=== PATIENT | male | born 1990 | race Caucasian/White ===

== ENCOUNTER 2017-09-30 11:30 | Emergency (ER) | payer SELFPAY, BC, MEDICAID, OTHER ==
[2017-09-30] MEDS: ADACEL/BOOSTRIX VACCINE (DIPHTH/PERTUSS/ACELL/TETANUS)0.5ML SYR (90715) IM (13:15)
[2017-09-30] MEDS: ERYTHROMYCIN OPHTH OINT OS (13:22)
== END 2017-09-30 13:59 | disposition home or self-care (01) ==
LOC: M ED 11:30
DX: T15.02XA Foreign body in cornea, left eye, initial encounter (principal); X58.XXXA Exposure to other specified factors, initial encounter; Y92.89 Other specified places as the place of occurrence of the external cause; F17.210 Nicotine dependence, cigarettes, uncomplicated
CPT/HCPCS: 90715

== ENCOUNTER → 2018-04-12 | Outpatient (REF) | payer OTHER ==
[~2018-04-12] MED LIST: ERYTOIN8 OS
== END ==
LOC: M SFHCLERA 14:27
PROVIDERS: ATTEND Nurse Practitioner Family
DX: J02.9 Acute pharyngitis, unspecified (principal)

== ENCOUNTER → 2018-12-22 | Outpatient (CLI) | payer MEDICAID | LOC: M OUTALCOH 09:42 | PROVIDERS: ATTEND Psychiatry & Neurology Psychiatry | DX: Z03.89 Encounter for observation for other suspected diseases and conditions ruled out (principal) ==

== ENCOUNTER 2018-12-29 11:05 | Outpatient (RCR) | payer MEDICAID | END 2019-01-25 | LOC: M OUTALCOH 11:05 | PROVIDERS: ATTEND Psychiatry & Neurology Psychiatry | DX: Z03.89 Encounter for observation for other suspected diseases and conditions ruled out (principal) ==

== ENCOUNTER → 2020-05-05 | Outpatient (CLI) | payer MEDICAID ==
[2020-05-05 12:30] LABS: BASO % 0.2 % (0.0-1.0); EOS % 0.3 % (0.0-3.0); HEMATOCRIT 48.2 % (42.0-52.0); HEMOGLOBIN 16.4 g/dl (13.5-17.5); LYMPH # 2.5 10^3/uL (1.5-5.0); MEAN CORPUSCULAR HEMOGLOBIN 31.5 pg (27.0-33.0); MEAN CORPUSCULAR VOLUME 92.7 fl (80.0-96.0); MONO # 1.3 10^3/uL (0.0-0.8); MONO % 13.7 % (0.0-5.0); NEUTROPHILS # 5.8 10^3/uL (1.5-8.5); NEUTROPHILS % 59.5 % (36.0-66.0); PLATELET COUNT, AUTOMATED 260 10^3/uL (150-450); WHITE BLOOD COUNT 9.7 10^3/uL (4.0-10.0)
[2020-05-05 14:07] LABS: ALBUMIN 4.2 GM/DL (3.2-5.2); ALT/SGPT 25 U/L (12-78); BILIRUBIN,TOTAL 2.7 MG/DL (0.2-1.0); BLOOD UREA NITROGEN 11 MG/DL (7-18); CALCIUM LEVEL 9.3 MG/DL (8.5-10.1); CARBON DIOXIDE LEVEL 30 MEQ/L (21-32); CHLORIDE LEVEL 101 MEQ/L (98-107); CREATININE FOR GFR 1.16 MG/DL (0.70-1.30); GLOMERULAR FILTRATION RATE > 60.0 (>60); GLUCOSE, FASTING 109 MG/DL (70-100); POTASSIUM SERUM 4.1 MEQ/L (3.5-5.1); SODIUM LEVEL 138 MEQ/L (136-145); TOTAL PROTEIN 7.5 GM/DL (6.4-8.2)
== END ==
LOC: M WUC 10:07
PROVIDERS: ATTEND Physician Assistant
DX: K29.20 Alcoholic gastritis without bleeding (principal)

== ENCOUNTER 2020-06-24 08:43 | Emergency (ER) | payer MEDICAID, OTHER ==
[~2020-06-24] VITALS: Ht 177.8 cm; Wt 74.6 kg
--- NOTE | 2020-06-24 09:14 | REP ---
INDICATION: HEAD TRAUMA. COMPARISON: Comparison CT study September 03, 2011.. TECHNIQUE: Helical scanning is acquired. 5 mm axial images were reformatted. Coronal MPR images were generated. FINDINGS: Bone window settings demonstrate an intact bony calvarium. There is no evidence of skull fracture or incidental bony calvarial lesion. The visualized paranasal sinuses appear clear. No intraorbital abnormality is seen. On soft tissue window setting images; the lateral, third, and fourth ventricles are normal in size and position. Hannon-white differentiation pattern is normal above and below the tentorium. There are is no evidence of intracranial hemorrhage. No mass, edema, infarction, or midline shift is seen. No extra-axial fluid collection is appreciated. IMPRESSION: Negative noncontrast head CT. <Electronically signed by Junito Fong > 06/24/20 [id number]
--- NOTE | 2020-06-24 09:16 | REP ---
INDICATION: HEAD TRAUMA. COMPARISON: None. TECHNIQUE: Helical scanning is acquired and overlapping 2 mm high resolution axial images were generated and reviewed at bone and soft tissue window settings. Coronal and sagittal multiplanar re-formations images are generated. FINDINGS: There is no evidence of cervical spine element fracture. No skull base fracture is seen. Cervical vertebral body heights are preserved. Alignment is normal. Facet joints are normally aligned bilaterally at each cervical level on multiplanar re-formations images. There is no evidence of intraspinal or paraspinal hematoma. No extra vertebral abnormality is seen. IMPRESSION: Negative CT study of the cervical spine without contrast. No fracture seen. <Electronically signed by Junito Fong > 06/24/20 0610
[2020-06-24] MEDS ORDERED: METOCLOPRAMIDE INJ 10MG/2ML VIAL (J2765 PER 1) IV ONE (09:20)
[2020-06-24] MEDS ORDERED: NS 1,000 ML IV SCH (09:20)
[2020-06-24 09:36] LABS: BASO % 0.2 % (0.0-1.0); HEMATOCRIT 47.1 % (42.0-52.0); HEMOGLOBIN 16.1 g/dl (13.5-17.5); LYMPH # 1.2 10^3/uL (1.5-5.0); MEAN CORPUSCULAR HEMOGLOBIN 31.9 pg (27.0-33.0); MEAN CORPUSCULAR HGB CONC 34.2 g/dl (32.0-36.5); MEAN CORPUSCULAR VOLUME 93.3 fl (80.0-96.0); MONO # 0.7 10^3/uL (0.0-0.8); MONO % 6.3 % (2.0-8.0); NEUTROPHILS # 8.7 10^3/uL (1.5-8.5); PLATELET COUNT, AUTOMATED 277 10^3/uL (150-450); RED BLOOD COUNT 5.05 10^6/uL (4.30-6.10); WHITE BLOOD COUNT 10.6 10^3/uL (4.0-10.0)
[2020-06-24 10:07] LABS: ALBUMIN 4.7 GM/DL (3.2-5.2); ALT/SGPT 52 U/L (12-78); BILIRUBIN,DIRECT 0.3 MG/DL (0.0-0.2); BILIRUBIN,TOTAL 1.1 MG/DL (0.2-1.0); BLOOD UREA NITROGEN 11 MG/DL (7-18); CALCIUM LEVEL 9.4 MG/DL (8.5-10.1); CARBON DIOXIDE LEVEL 27 MEQ/L (21-32); CHLORIDE LEVEL 101 MEQ/L (98-107); CREATININE FOR GFR 0.82 MG/DL (0.70-1.30); GLOMERULAR FILTRATION RATE > 60.0 (>60); GLUCOSE, FASTING 114 MG/DL (70-100); LIPASE 70 U/L (73-393); POTASSIUM SERUM 4.6 MEQ/L (3.5-5.1); SODIUM LEVEL 136 MEQ/L (136-145); TOTAL PROTEIN 8.3 GM/DL (6.4-8.2)
[2020-06-24] MEDS ORDERED: PANTOPRAZOLE 40MG TAB (PROTONIX) PO ONE (10:35)
[2020-06-24] MEDS ORDERED: GI COCKTAIL 50ML BTL(HYOSCYAMINE/MAALOX/LIDOCAINE VISCOUS)(1:3:1) PO ONE (10:35)
[2020-06-24] MEDS ORDERED: PROT1TAB2 PO (11:52)
[2020-06-24] MEDS ORDERED: CARA1TAB6 PO (11:53)
[2020-06-24 12:11] VITALS: BP 152/79
== END 2020-06-24 12:14 | disposition home or self-care (01) ==
LOC: M ED 08:43
DX: R10.13 Epigastric pain (principal); F17.200 Nicotine dependence, unspecified, uncomplicated; Z79.899 Other long term (current) drug therapy
CPT/HCPCS: 70450; 72125; 80048; 80076; 83690; 85025; 96361; 96374; 99284; J2765

== ENCOUNTER → 2021-03-25 | Outpatient (CLI) | payer MEDICAID ==
[~2021-03-25] MED LIST changes: +CARA1TAB6 PO; +PROT1TAB2 PO
== END ==
LOC: M OUTALCOH 09:02
PROVIDERS: ATTEND Psychiatry & Neurology Psychiatry
DX: Z13.9 Encounter for screening, unspecified (principal)

== ENCOUNTER 2021-04-21 15:55 | Outpatient (RCR) | payer MEDICAID | END 2021-04-27 | LOC: M OUTALCOH 15:55 | PROVIDERS: ATTEND Psychiatry & Neurology Psychiatry | DX: F10.20 Alcohol dependence, uncomplicated (principal); F17.200 Nicotine dependence, unspecified, uncomplicated ==

== ENCOUNTER 2021-05-19 16:00 | Outpatient (RCR) | payer MEDICAID | END 2021-05-25 | LOC: M OUTALCOH 16:00 | PROVIDERS: ATTEND Psychiatry & Neurology Psychiatry | DX: F10.20 Alcohol dependence, uncomplicated (principal); F17.200 Nicotine dependence, unspecified, uncomplicated ==

== ENCOUNTER 2021-06-23 15:00 | Outpatient (RCR) | payer MEDICAID | END 2021-06-25 | LOC: M OUTALCOH 15:00 | PROVIDERS: ATTEND Psychiatry & Neurology Psychiatry | DX: F10.20 Alcohol dependence, uncomplicated (principal); F17.200 Nicotine dependence, unspecified, uncomplicated ==

== ENCOUNTER 2021-07-22 16:00 | Outpatient (RCR) | payer MEDICAID | END 2021-07-25 | LOC: M OUTALCOH 16:00 | PROVIDERS: ATTEND Psychiatry & Neurology Psychiatry | DX: F10.20 Alcohol dependence, uncomplicated (principal); F17.200 Nicotine dependence, unspecified, uncomplicated ==

== ENCOUNTER 2021-08-19 15:00 | Outpatient (RCR) | payer MEDICAID | END 2021-08-25 | LOC: M OUTALCOH 15:00 | PROVIDERS: ATTEND Psychiatry & Neurology Psychiatry | DX: F10.20 Alcohol dependence, uncomplicated (principal); F17.200 Nicotine dependence, unspecified, uncomplicated ==

== ENCOUNTER 2021-09-23 14:00 | Outpatient (RCR) | payer MEDICAID | END 2021-09-24 | LOC: M OUTALCOH 14:00 | PROVIDERS: ATTEND Psychiatry & Neurology Psychiatry | DX: F10.20 Alcohol dependence, uncomplicated (principal); F17.200 Nicotine dependence, unspecified, uncomplicated ==

== ENCOUNTER 2021-10-07 15:26 | Outpatient (RCR) | payer MEDICAID | END 2021-10-25 | LOC: M OUTALCOH 15:26 | PROVIDERS: ATTEND Psychiatry & Neurology Psychiatry | DX: F10.20 Alcohol dependence, uncomplicated (principal); F17.200 Nicotine dependence, unspecified, uncomplicated ==

== ENCOUNTER 2021-11-23 16:00 | Outpatient (RCR) | payer MEDICAID | END 2021-11-25 | LOC: M OUTALCOH 16:00 | PROVIDERS: ATTEND Psychiatry & Neurology Psychiatry | DX: F10.20 Alcohol dependence, uncomplicated (principal); F17.200 Nicotine dependence, unspecified, uncomplicated ==

== ENCOUNTER 2021-12-21 15:00 | Outpatient (RCR) | payer MEDICAID | END 2021-12-25 | LOC: M OUTALCOH 15:00 | PROVIDERS: ATTEND Psychiatry & Neurology Psychiatry | DX: F10.20 Alcohol dependence, uncomplicated (principal); F17.200 Nicotine dependence, unspecified, uncomplicated ==

== ENCOUNTER → 2022-01-25 | Outpatient (RCR) | payer MEDICAID | LOC: M OUTALCOH 01-11 15:02 | PROVIDERS: ATTEND Psychiatry & Neurology Psychiatry | DX: F10.20 Alcohol dependence, uncomplicated (principal); F17.200 Nicotine dependence, unspecified, uncomplicated ==

== ENCOUNTER 2022-02-17 11:00 | Outpatient (RCR) | payer MEDICAID | END 2022-02-24 | LOC: M OUTALCOH 11:00 | PROVIDERS: ATTEND Psychiatry & Neurology Psychiatry | DX: F10.20 Alcohol dependence, uncomplicated (principal); F17.200 Nicotine dependence, unspecified, uncomplicated ==

== ENCOUNTER → 2022-04-12 | Outpatient (REF) | payer MEDICAID ==
[2022-04-12 17:42] LABS: BASO # 0.1 10^3/uL (0.0-0.2); BASO % 0.5 % (0.0-1.0); EOS # 0.1 10^3/uL (0.0-0.5); EOS % 0.6 % (0.0-3.0); HEMATOCRIT 45.8 % (42.0-52.0); HEMOGLOBIN 15.2 g/dl (13.5-17.5); LYMPH # 3.3 10^3/uL (1.5-5.0); LYMPH % 21.7 % (24.0-44.0); MEAN CORPUSCULAR HEMOGLOBIN 31.3 pg (27.0-33.0); MEAN CORPUSCULAR HGB CONC 33.2 g/dl (32.0-36.5); MEAN CORPUSCULAR VOLUME 94.4 fl (80.0-96.0); MONO # 1.2 10^3/uL (0.0-0.8); MONO % 7.7 % (2.0-8.0); NEUTROPHILS # 10.5 10^3/uL (1.5-8.5); NEUTROPHILS % 68.9 % (36.0-66.0); PLATELET COUNT, AUTOMATED 301 10^3/uL (150-450); RED BLOOD COUNT 4.85 10^6/uL (4.30-6.10); WHITE BLOOD COUNT 15.2 10^3/uL (4.0-10.0)
== END ==
LOC: M LAB REF 16:29
PROVIDERS: ATTEND Pediatrics
DX: K92.2 Gastrointestinal hemorrhage, unspecified (principal)

== ENCOUNTER → 2022-05-17 | Outpatient (REF) | payer MEDICAID ==
[2022-05-17 18:59] LABS: ALBUMIN 4.4 G/DL (3.2-5.2); BILIRUBIN,DIRECT 0.1 MG/DL (<0.4); BILIRUBIN,TOTAL 0.5 MG/DL (0.3-1.2); CHOLESTEROL RISK RATIO 2.2 (<5); HDL CHOLESTEROL 80.9 MG/DL (>40); LDL CHOLESTEROL 77.5 MG/DL (<100); TOTAL 25(OH) VITAMIN D 15.6 NG/ML (20.0-100.0)
[2022-05-17 19:03] LABS: BASO # 0.1 10^3/uL (0.0-0.2); BASO % 0.7 % (0.0-1.0); EOS # 0.4 10^3/uL (0.0-0.5); EOS % 3.2 % (0.0-3.0); HEMATOCRIT 47.4 % (42.0-52.0); HEMOGLOBIN 15.6 g/dl (13.5-17.5); LYMPH # 2.6 10^3/uL (1.5-5.0); LYMPH % 21.1 % (24.0-44.0); MEAN CORPUSCULAR HEMOGLOBIN 31.5 pg (27.0-33.0); MEAN CORPUSCULAR HGB CONC 32.9 g/dl (32.0-36.5); MEAN CORPUSCULAR VOLUME 95.6 fl (80.0-96.0); MONO % 13.8 % (2.0-8.0); NEUTROPHILS # 7.4 10^3/uL (1.5-8.5); NEUTROPHILS % 60.6 % (36.0-66.0); PLATELET COUNT, AUTOMATED 271 10^3/uL (150-450); RED BLOOD COUNT 4.96 10^6/uL (4.30-6.10); WHITE BLOOD COUNT 12.1 10^3/uL (4.0-10.0)
[2022-05-17 19:23] LABS: TOTAL PROTEIN 7.4 G/DL (5.7-8.2)
[2022-05-17 20:09] LABS: MONO # 1.7 10^3/uL (0.0-0.8)
== END ==
LOC: M LAB REF 16:18
PROVIDERS: ATTEND Pediatrics
DX: E55.9 Vitamin D deficiency, unspecified (principal); D72.829 Elevated white blood cell count, unspecified; F17.200 Nicotine dependence, unspecified, uncomplicated; F10.10 Alcohol abuse, uncomplicated

== ENCOUNTER 2022-07-21 07:54 | Day surgery (SDC) | payer OTHER ==
[~2022-07-21] VITALS: Ht 172.7 cm; Wt 76.7 kg
[~2022-07-21 07:54] MED LIST changes: +NS 1,000 ML IV ONE; +OMEP40CA5 PO
[2022-07-21] MEDS ORDERED: propofoL 200 MG/20 ML VIAL As Ordered ONE ×2 (09:52→10:11)
[2022-07-21] MEDS ORDERED: fentaNYL 100 MCG/2 ML INJECTION As Ordered ONE (09:53)
[2022-07-21 10:36] VITALS: BP 144/89
== END 2022-07-21 10:43 | disposition home or self-care (01) ==
LOC: M OPP 07:54
PROVIDERS: ATTEND Surgery
DX: D12.2 Benign neoplasm of ascending colon (principal); K92.1 Melena; K29.70 Gastritis, unspecified, without bleeding; Z87.891 Personal history of nicotine dependence
CPT/HCPCS: 43239; 45380; 88305; J3010

== ENCOUNTER → 2024-01-02 | Outpatient (CLI) | payer OTHER ==
[~2024-01-02] MED LIST changes: -NS 1,000 ML IV ONE
== END ==
LOC: M RAD 08:30
PROVIDERS: ATTEND Urology
DX: N50.819 Testicular pain, unspecified (principal)